=== PATIENT | male | born 1960 | race Native Hawaiian/Other Pacific Islander ===

== ENCOUNTER 2018-05-26 13:26 | Emergency (ER) | payer SELFPAY ==
[~2018-05-26] VITALS: Ht 167.6 cm; Wt 74.8 kg
--- NOTE | 2018-05-26 13:33 | NUR ---
PT IS IN ROOM #1B. DR BYNUM EVALUATED THE PT.
--- NOTE | 2018-05-26 13:45 | NUR ---
Pt states he is unable to recall his home medicatons at this time. Pt states his is coming and she has the information.
[2018-05-26] MEDS ORDERED: LORAZEPAM 2 MG/1 ML VIAL ONE (13:49)
[2018-05-26] MEDS: LORAZEPAM 2 MG/1 ML VIAL IV ONE (13:52)
[2018-05-26 14:10] LABS: BASOPHILS % (AUTO) 0.3 % (0.0-2.0); EOSINOPHILS # (AUTO) 0.1 K/uL (0.0-0.7); EOSINOPHILS % (AUTO) 0.6 % (0.0-7.0); HEMOGLOBIN 13.6 g/dL (12.5-16.3); LYMPHOCYTES # (AUTO) 1.2 K/uL (20.0-40.0); LYMPHOCYTES % (AUTO) 11.7 % (20.5-51.5); MEAN CORPUSCULAR HEMOGLOBIN 31.6 uug (23.8-33.4); MEAN CORPUSCULAR HGB CONC 34 g/dL (32.5-36.3); MEAN CORPUSCULAR VOLUME 92.7 fL (73.0-96.2); MONOCYTES # (AUTO) 0.5 K/uL (2.0-10.0); MONOCYTES % (AUTO) 4.6 % (0.0-11.0); NEUTROPHILS # (AUTO) 8.3 K/uL (1.8-8.9); NEUTROPHILS % (AUTO) 82.8 % (38.5-71.5); PLATELET COUNT (AUTO) 248 K/uL (152-348); RED BLOOD CELL COUNT(AUTO) 4.31 MIL/uL (4.06-5.63)
[2018-05-26 14:16] LABS: CREATININE 0.9 mg/dL (0.6-1.3); POTASSIUM 3.5 mmol/L (3.5-5.1)
[2018-05-26 14:21] LABS: BILIRUBIN,DIRECT 0.1 mg/dL (0.0-0.2); BILIRUBIN,TOTAL 0.4 mg/dL (0.2-1.0); TOTAL PROTEIN, SERUM 7.5 g/dL (6.4-8.2)
--- NOTE | 2018-05-26 18:58 | NUR ---
PT WAS D/C TO HOME AFTER DR BYNUM RE-EVALUATION. D/C INSTRUCTIONS GIVEN TO THE PT.
[2018-05-26 18:59] VITALS: BP 129/72
== END 2018-05-26 19:01 | disposition home or self-care (01) ==
LOC: ER 13:26
DX: H81.399 Other peripheral vertigo, unspecified ear (principal); I10 Essential (primary) hypertension; E11.9 Type 2 diabetes mellitus without complications
CPT/HCPCS: 36415; 80048; 80076; 83605; 84484; 85025; 85730; 87040 ×2; 93005; 96374; 99285; J2060; 70030-TC; A4663